=== PATIENT | female | born 1990 | race Caucasian/White ===

== ENCOUNTER 2017-09-15 20:44 | Emergency (ER) | payer OTHER ==
[~2017-09-15] VITALS: Ht 170.2 cm; Wt 142.9 kg
[~2017-09-15 20:44] MED LIST: CETI10 PO; CRUTCH4 USE; DIPH50 PO; HYDACE5 PO
[2017-09-15] MEDS ORDERED: ANTIANXIETY (20:58)
[2017-09-15] MEDS ORDERED: BIRTH CONTROL (20:58)
[2017-09-15] MEDS ORDERED: Bactrim Ds Tab1 EACH PO (21:26)
== END 2017-09-15 21:42 | disposition home or self-care (01) ==
LOC: ER 20:44
DX: N61.1 Abscess of the breast and nipple (principal); Z79.899 Other long term (current) drug therapy; E66.9 Obesity, unspecified; Z68.42 Body mass index [BMI] 45.0-49.9, adult
CPT/HCPCS: 10060; 99283

== ENCOUNTER 2018-01-11 16:16 | Emergency (ER) | payer OTHER ==
[~2018-01-11] VITALS: Ht 170.2 cm; Wt 97.1 kg
[~2018-01-11 16:16] MED LIST changes: +ANTIANXIETY; +BIRTH CONTROL; +Bactrim Ds Tab1 EACH PO
[2018-01-11] MEDS ORDERED: Robaxin500 MG PO (16:51)
== END 2018-01-11 17:00 | disposition home or self-care (01) ==
LOC: ER 16:16
DX: M54.5 Low back pain (principal); Z79.899 Other long term (current) drug therapy
CPT/HCPCS: 96372; 99283; J1885

== ENCOUNTER 2018-12-16 11:00 | Emergency (ER) | payer OTHER ==
[~2018-12-16] VITALS: Ht 170.2 cm; Wt 138.3 kg
[~2018-12-16 11:00] MED LIST changes: +Robaxin500 MG PO
[2018-12-16 11:56] LABS: BASOPHILS ABSOLUTE AUTO 0.03 K/mm3 (0.00-0.23); BASOPHILS PERCENT AUTO 0 % (0-2); EOSINOPHILS ABSOLUTE AUTO 0.09 K/mm3 (0.00-0.68); EOSINOPHILS PERCENT AUTO 1 % (0-6); Hematocrit 41.8 % (33.0-51.0); Hemoglobin 13.8 g/dL (11.5-16.0); IMMATURE GRAN ABSOLUTE AUTO 0.01 K/mm3 (0.00-0.10); IMMATURE GRAN PERCENT AUTO 0 % (0-1); LYMPHOCYTES ABSOLUTE AUTO 2.46 K/mm3 (0.84-5.20); LYMPHOCYTES PERCENT AUTO 37 % (21-46); MONOCYTES ABSOLUTE AUTO 0.54 K/mm3 (0.16-1.47); MONOCYTES PERCENT AUTO 8 % (4-13); Mean Corpuscular Volume 85 fL (80-100); Mean Platelet Volume 9.6 fL (9.1-12.4); NEUTROPHILS PERCENT AUTO 54 % (41-73); Platelet Count 412 K/mm3 (150-400); RDW Coefficient Variation 13.3 % (11.7-14.2); RDW Standard Deviation 41.7 fL (35.1-46.3); Red Blood Cell Count 4.93 M/mm3 (3.80-5.20); White Blood Cell Count 6.73 K/mm3 (4.00-11.30)
[2018-12-16 12:17] LABS: Alanine Aminotransfer (ALT/SGP 30 U/L (12-78); Albumin, Blood 3.4 g/dL (3.4-5.0); Albumin/Globulin Ratio 0.7 (0.8-1.8); Alk Phos 96 U/L (50-136); Anion Gap 9 mmol/L (6-16); Aspartate Aminotrans (AST/SGOT 16 U/L (12-37); Bilirubin, Total 0.3 mg/dL (0.1-1.0); Blood Urea Nitrogen 8 mg/dL (8-24); CO2, Blood 22 mmol/L (21-32); Calcium, Blood 8.6 mg/dL (8.5-10.1); Chloride, Blood 108 mmol/L (98-108); Creatinine, Blood 0.67 mg/dL (0.40-1.00); Globulin, Blood 4.6 g/dL (2.2-4.0); Glomerular Filtration Rate >60 (60-); Glucose, Blood 86 mg/dL (70-99); Potassium, Blood 3.1 mmol/L (3.5-5.5); Sodium, Blood 139 mmol/L (136-145)
[2018-12-16] MEDS ORDERED: K-Dur20 MEQ PO (12:41)
[2018-12-16] MEDS ORDERED: Loperamide2 MG PO (12:41)
== END 2018-12-16 12:58 | disposition home or self-care (01) ==
LOC: ER 11:00
PROVIDERS: Emergency Medicine
DX: K52.9 Noninfective gastroenteritis and colitis, unspecified (principal); E87.6 Hypokalemia; Z79.899 Other long term (current) drug therapy
CPT/HCPCS: 36415; 80053; 85025; J7030

== ENCOUNTER → 2024-02-29 | Outpatient (CLI) | payer SELFPAY ==
[~2024-02-29] MED LIST changes: +K-Dur20 MEQ PO; +Loperamide2 MG PO
== END ==
LOC: LAB SHORT 14:41 → LAB 14:41
DX: D72.828 Other elevated white blood cell count (principal); D75.839 Thrombocytosis, unspecified; E28.2 Polycystic ovarian syndrome; R79.82 Elevated C-reactive protein (CRP); R70.0 Elevated erythrocyte sedimentation rate
CPT/HCPCS: 85651